=== PATIENT | female | born 2000 | race African-American/Black ===

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

== ENCOUNTER 2021-01-18 17:34 | Emergency (ER) | payer OTHER ==
[~2021-01-18] VITALS: Ht 162.6 cm; Wt 70.8 kg
[~2021-01-18 17:34] MED LIST changes: +DOXYCYCLINE 10100 MG PO
[2021-01-18 18:10] LABS: HEMATOCRIT 39.6 % (37.0-47.0); HEMOGLOBIN 13.5 gm/dL (12.0-15.0); MCH 30.6 pg (26.0-34.0); MCHC 34.2 g/dL (28.0-37.0); MCV 89.5 fL (80.0-100.0); RBC 4.43 mil/uL (4.20-5.00); RDW 12.2 % (10.5-14.5); WBC 18.4 thou/uL (4.0-11.0)
[2021-01-18 18:17] LABS: URINE BLOOD TRACE (Negative); URINE COLOR YELLOW; URINE GLUCOSE-RANDOM* NEGATIVE (Negative); URINE KETONES 3+ (Negative); URINE NITRITE-REFLEX NEGATIVE (Negative); URINE PROTEIN (DIPSTICK) TRACE (Negative); URINE SPECIFIC GRAVITY 1.025 (1.005-1.035)
[2021-01-18 18:18] LABS: CALCIUM 9.3 mg/dL (8.5-10.1); POTASSIUM 3.6 mmol/L (3.5-5.1)
[2021-01-18 18:22] LABS: URINE CLARITY HAZY; URINE LEUKOCYTES-REFLEX 2+ (Negative)
[2021-01-18 18:24] LABS: ICTOTEST (BILI CONFIRMATORY) Negative (Negative); URINE BILIRUBIN NEGATIVE (Negative); URINE REDUCING SUBSTANCE NEGATIVE
[2021-01-18 18:28] LABS: SQUAMOUS >10 Many /LPF (0-3); URINE WBC-REFLEX >25 Many /HPF (0-5)
[2021-01-18 18:29] LABS: BACTERIA-REFLEX >30 Many /HPF (None Seen); CASTS None Seen /LPF (None Seen); MUCUS 4-6 Moderate strn/LPF (None Seen); URINE RBC 1-2 Rare /HPF (NONE SEEN)
[2021-01-18 18:30] LABS: CRYSTALS None Seen /LPF (None Seen)
[2021-01-18] MEDS ORDERED: CIPRO500 M1 PO (21:36)
[2021-01-18 22:09] VITALS: BP 107/64
--- NOTE | 2021-01-19 07:55 | EKG ---
[address] [place] [address] ELECTROCARDIOGRAM REPORT Name: MARSHAL WILLIS Room #: [facility] Cohen#: [id number] Admission: 01/18/21 Attend Phys: Discharge: 01/18/21 Date of : 01 Report #: [id number] [facility] ED Test Date: 2021-01-18 Test Time: 18:00:38 Pat Name: MARSHAL WILLIS Department: Room: Gender: Idea Man: ALISSA : 2000 Requested By: Cathy Siegel Order Number: [id number] MD: Jero Grant Measurements Intervals [place] Rate: 129 P: 72 CT: 158 QRS: 61 QRSD: 77 T: -35 QT: 293 QTc: 430 Interpretive Statements Sinus tachycardia Nonspecific T abnormalities No previous ECG available for comparison Electronically Signed On 01-19-2021 7:55:17 [employer] HEL[employer] by Jero Grant [email or web address] <ELECTRONICALLY SIGNED> By: Jero Grant MD, [facility] 01/19/21 [address] [facility] Jero Grant MD, FACC /EPI
== END 2021-01-18 21:45 | disposition home or self-care (01) ==
LOC: ER 17:34
PROVIDERS: Emergency Medicine
DX: N12 Tubulo-interstitial nephritis, not specified as acute or chronic (principal); Z20.822 Contact with and (suspected) exposure to COVID-19; R50.9 Fever, unspecified; Z79.899 Other long term (current) drug therapy; Z79.891 Long term (current) use of opiate analgesic; Z79.1 Long term (current) use of non-steroidal anti-inflammatories (NSAID); Z88.1 Allergy status to other antibiotic agents

== ENCOUNTER 2021-01-21 20:30 | Emergency (ER) | payer OTHER ==
[~2021-01-21] VITALS: Ht 162.6 cm; Wt 70.8 kg
[~2021-01-21 20:30] MED LIST changes: +CIPRO500 M1 PO
[2021-01-21 20:52] LABS: ABSOLUTE NEUTROPHILS 13.5 thou/uL (1.4-8.2); BASOPHILS 0.2 % (0.0-2.0); EOSINOPHILS 0.4 % (0.0-3.0); HEMATOCRIT 36.5 % (37.0-47.0); HEMOGLOBIN 12.7 gm/dL (12.0-15.0); LYMPHOCYTES 9.4 % (24.0-44.0); MCH 30.9 pg (26.0-34.0); MCHC 34.9 g/dL (28.0-37.0); MCV 88.7 fL (80.0-100.0); MONOCYTES 9.7 % (1.0-8.0); PLATELET COUNT 298 thou/uL (150-400); POLYS 80.3 % (36.0-66.0); RBC 4.12 mil/uL (4.20-5.00); RDW 11.9 % (10.5-14.5); WBC 16.9 thou/uL (4.0-11.0)
[2021-01-21 20:58] LABS: URINE BILIRUBIN NEGATIVE (Negative); URINE BLOOD NEGATIVE (Negative); URINE CLARITY SL CLOUDY; URINE COLOR YELLOW; URINE GLUCOSE-RANDOM* NEGATIVE (Negative); URINE KETONES NEGATIVE (Negative); URINE NITRITE-REFLEX NEGATIVE (Negative); URINE PROTEIN (DIPSTICK) TRACE (Negative); URINE SPECIFIC GRAVITY <= 1.005 (1.005-1.035)
[2021-01-21 20:59] LABS: URINE LEUKOCYTES-REFLEX 3+ (Negative)
[2021-01-21 21:11] LABS: CASTS None Seen /LPF (None Seen); SQUAMOUS >10 Many /LPF (0-3); URINE WBC-REFLEX >25 Many /HPF (0-5)
[2021-01-21 21:12] LABS: CRYSTALS None Seen /LPF (None Seen); URINE RBC 1-2 Rare /HPF (NONE SEEN)
[2021-01-21 21:17] LABS: CALCIUM 9.3 mg/dL (8.5-10.1); CREATININE 0.8 mg/dL (0.6-1.0); POTASSIUM 4.1 mmol/L (3.5-5.1)
[2021-01-21 21:21] LABS: ALBUMIN 3.1 g/dL (3.4-5.0); TOTAL BILIRUBIN 2.1 mg/dL (0.2-1.0); TOTAL PROTEIN 8.5 g/dL (6.4-8.2)
[2021-01-22] MEDS ORDERED: DOXYCYCLINE 10100 MG PO (00:45)
[2021-01-22 00:53] VITALS: BP 109/62
== END 2021-01-22 01:00 | disposition home or self-care (01) ==
LOC: ER 20:30
PROVIDERS: Physician Assistant
DX: N73.8 Other specified female pelvic inflammatory diseases (principal); N83.202 Unspecified ovarian cyst, left side; R10.32 Left lower quadrant pain; Z88.1 Allergy status to other antibiotic agents; Z79.899 Other long term (current) drug therapy